=== PATIENT | female | born 1970 | race Two or more races ===

== ENCOUNTER → 2016-03-14 | Day surgery (SDC) | payer BC, MEDICARE ==
[~2016-03-14] VITALS: Ht 167.6 cm; Wt 77.1 kg
[2016-03-14] VITALS (8 sets, daily range): BP systolic 131–144; BP diastolic 63–88
[~2016-03-14] MED LIST: Atropine Sulfate 3.5gm Oint ONE; BSS 500ml btl ONE; Bupivacaine 0.75% 30ml vial INJ ONE; CRESTOR10 M2 ORAL; Cyclopentolate 1% Opth Sol ONE; Dexamethasone 4mg/ml vial ONE; DiphenhydrAMINE 50mg/ml Inj IVP PRN; EPINEPHrine 1mg/1ml Amp ONE; FISH OIL PO; Goniosol 2.5% Opth Soln - 15ml ONE; HYDROCHLOROTH12.5 M2 ORAL; Kenalog-40 1ml Vial ONE; LR 1000ml 1,000 ML IVLG SCH; LR 1000ml ONE; Lidocaine 2% MPF 5ml Vial INJ ONE; MAXALT10 MG PO; MULTIVITAMINS1 EAC2 ORAL; Maxitrol Opth Oint 3.5gm ONE; Meperidine 25mg/ml Inj IV PRN; Midazolam 2mg/2ml Inj ONE; NS Irrig 1000ml ONE; Phenylephrine 2.5% Op Soln ONE; Povidone-Iodine 5% opth solution ONE; Pred Forte 1% Opth Susp 1ml ONE; Sterile Water Irrig 1000ml IRRIG ONE; VIT B12 PO; VIT D PO; fentaNYL 100 mcg/2 mL IV ONE
[2016-03-14] MEDS: Phenylephrine 2.5% Op Soln RIGHT EYE SCH ×3 (11:30→12:25)
[2016-03-14] MEDS: Cyclopentolate 1% Opth Sol RIGHT EYE SCH ×3 (11:30→12:25)
--- NOTE | 2016-03-14 13:30 | Pre-Procedure Note/Attestation ---
Pre-Procedure Note/Attestation Complete Prior to Procedure Planned Procedure: right Procedure Narrative: Vitrectomy, Membrane Peel, Endolaser, Gas Fluid Exchange Right Eye Indications for Procedure Pre-Operative Diagnosis: Macular Hole Right Eye Attestation I attest that I discussed the nature of the procedure; its benefits; risks and complications; and alternatives (and the risks and benefits of such alternatives ), prior to the procedure, with the patient (or the patient's legal industrial relations representative). I attest that, if there was a reasonable possibility of needing a blood transfusion, the patient (or the patient's legal industrial relations representative) was given the [facility] standardized written summary, pursuant to the [employer] Blood Safety Act ([place] Health and Safety Code # 1645, as amended). I attest that I re-evaluated the patient just prior to the surgery and that there has been no change in the patient's H&P, except as documented below: KEN HANNA Mar 14, 2016 13:30
--- NOTE | 2016-03-14 13:33 | Operative Note - PDOC ---
Operative Note Operative Note Date of Operation/Procedure: Mar 14, 2016 Chief Complaint: Decreased Vision Pre-op Diagnosis: Macular Hole Right Eye Procedure: Vitrectomy, Membrane Peel, Endolaser, Gas Fluid Exchange Right Eye Post-op Diagnosis: Same as pre-op diagnosis Post-op Diagnosis: same as pre-op Surgeon: Donis Outpatient Coordinator: None Anesthesia: local, MAC Specimen: none Complications: none Condition: stable Estimated Blood Loss: none Drains: none Implant(s) used?: No Indications for Procedure Macular Hole Right Eye Description of Procedure Vitrectomy, Membrane Peel, Endolaser, Gas Fluid Exchange. KEN HANNA Mar 14, 2016 13:33
--- NOTE | 2016-03-14 14:38 | Anethesia Preoperative Eval ---
Anesthesia Pre-op PMH/ROS General Date of Evaluation: Mar 14, 2016 Time of Evaluation: 14:10 Anesthesiologist: Isaias ASA Score: ASA 2 Mallampati Score Class I : Soft palate, uvula, fauces, pillars visible Class II: Soft palate, uvula, fauces visible Class III: Soft palate, base of uvula visible Class IV: Only hard plate visible Mallampati Classification: Class II Surgeon: Donis Diagnosis: R eye retinal detouchment Surgical Procedure: R eye PPV membrane peel laser treatment Anesthesia History: none Family History: no anesthesia problems Allergies: Coded Allergies: No Known Allergies (Unverified , 03/13/16) Medications: see eMAR Past Medical History Cardiovascular: Reports: HTN - mild , Denies: CAD, AL, arrhythmia, other, valve dz Pulmonary: Denies: COPD, ANIA, asthma, other Gastrointestinal/Genitourinary: Denies: CRI, ESRD, GERD, other Neurologic/Psychiatric: Denies: CVA, TIA, dementia, depression/anxiety, other Endocrine: Denies: DM, hypothyroidism, other, steroids HEENT: Reports: other - R eye retinopathy, Denies: KARUK (L), KARUK (R), cataract (L), cataract (R), glaucoma Hematology/Immune: Denies: DVT, anemia, bleeding disorder, other Musculoskeletal/Integumentary: Denies: DDD, DJD, OA, RA, edema, other PMH Narrative: as above PSxH Narrative: Ovarian cyst removal Anesthesia Pre-op Phys. Exam Physician Exam Last Vital Signs Date Time Temp Pulse Resp B/P Pulse Ox O2 Delivery O2 Flow Rate FiO2 03/14/16 11:57 98.2 69 20 138/63 99 Room Air Constitutional: NAD Neurologic: CN 2-12 intact Cardiovascular: RRR, no M/R/G Respiratory: CTA Gastrointestinal: S/NT/ND Airway Exam Mallampati Score: Class II MO: full Neck: flexible ROM: full Teeth: intact Dentures: no lower, no upper Anesthesia Pre-op A/P Labs Urine Test Test 03/14/16 11:20 Urine HCG, Qualitative Negative Risk Assessment & Plan Assessment: ASA 2 Plan: MAC with retrobulbar block Status Change Before Surgery: No Pre-Antibiotics Drug: none ALVARO MAX M.D. Mar 14, 2016 14:38
--- NOTE | 2016-03-14 15:26 | Immediate Post-Op Evaluation ---
Immediate Post-Op Evalulation Immediate Post-Op Evalulation Procedure: R eye PPV membrane peel laser treatment Date of Evaluation: Mar 14, 2016 Time of Evaluation: 15:25 IV Fluids: 300 Blood Products: none Estimated Blood Loss: none Urinary Output: none Blood Pressure Systolic: 149 Blood Pressure Diastolic: 85 Pulse Rate: 76 Respiratory Rate: 20 O2 Sat by Pulse Oximetry: 99 Temperature (Fahrenheit): 98.1 Pain Score (1-10): 1 Nausea: No Vomiting: No Complications none Patient Status: awake, patent, none Hydration Status: adequate ALVARO MAX M.D. Mar 14, 2016 15:26
--- NOTE | 2016-03-14 15:28 | 48 Hour Post Anesthesia Eval ---
Post Anesthesia Evaluation Procedure: R eye PPV membrane peel laser treatment Date of Evaluation: Mar 14, 2016 Time of Evaluation: 16:02 Blood Pressure Systolic: 136 0: 76 Pulse Rate: 82 Respiratory Rate: 20 Temperature (Fahrenheit): 97.6 O2 Sat by Pulse Oximetry: 98 Airway: patent Nausea: No Vomiting: No Pain Intensity: 1 Hydration Status: adequate Cardiopulmonary Status: stable Mental Status/LOC: patient returned to baseline Follow-up Care/Observations: n/a Post-Anesthesia Complications: none Follow-up care needed: ready to discharge ALVARO MAX M.D. Mar 14, 2016 15:28
--- NOTE | 2016-03-17 21:47 | Operative Note - Dictated ---
DATE OF OPERATION: 03/14/2016 SURGEON: Simon Dykes M.D. PREOPERATIVE DIAGNOSIS: Macular hole, right eye. POSTOPERATIVE DIAGNOSIS: Macular hole, right eye. PROCEDURE: Pars plana vitrectomy, membrane peeling, endolaser, and gas-fluid exchange, right eye. TYPE OF ANESTHESIA: Monitored anesthesia care, retrobulbar anesthesia, right eye. COMPLICATIONS: None. Procedure Note: Following the induction of local anesthesia and akinesia with a 50:50 mixture of 2% lidocaine and 0.75% bupivacaine in the right eye, the patient was prepped and draped in the usual sterile manner. Now, a speculum was placed in the right eye and intraocular pressure was noted to be normal. Three sclerotomies were created approximately 2.5 mm posterior to the limbus using a 22-gauge for cannula system in the infratemporal, supratemporal, and supranasal quadrants. An infusion line was placed and the infratemporal sclerotomy site was confirmed to be in the vitreous cavity. A core vitrectomy was then performed with the microvitrectomy cutter. The posterior hyaloid was seemed to already deattached from the posterior pole and optic nerve. Additional careful peripheral vitreous shaving was then performed for 360 degrees using the microvitrectomy cutter. A central full thickness macular hole was observed in the macula. Diluted triamcinolone acetonide was then used to coat the internal limiting membrane overlying the macula. This was carefully picked up with a 22-gauge internal limiting membrane forceps and completely peeled off the surface of the macula around the macular hole. Laser photocoagulation was then performed in the far periphery for 360 degrees at the vitreous space and all retinal tear with old surrounding cryotherapy scar was seen in the far supratemporal quadrant. Laser photocoagulation was added around this area using an endolaser probe. The retina was carefully checked for peripheral breaks or detachment, none were seen. A complete air fluid exchange was then performed with soft-tipped extrusion cannula. The air was then exchanged with 24% SF6 gas. The cannula was removed from the sclerotomy sites with no observed leakage. Subconjunctival vancomycin and dexamethasone was given in the inferior fornix. The Allis speculum was removed from the eye and the eye was patched and shielded. The patient left the operating room in good and stable condition. Simon Dykes M.D. DR: MEGHA JOB#: [id number] CC:
== END | disposition home or self-care (01) ==
LOC: SUR 11:02
DX: H35.341 Macular cyst, hole, or pseudohole, right eye (principal); I10 Essential (primary) hypertension; G43.909 Migraine, unspecified, not intractable, without status migrainosus; E78.2 Mixed hyperlipidemia; E53.8 Deficiency of other specified B group vitamins; E55.9 Vitamin D deficiency, unspecified
CPT/HCPCS: 67042; 81025; J0171; J1100; J2250; J2405; J3010; J3301; J3470; J3490; J7120; 94003; 94150